=== PATIENT | male | born 1935 | race Hispanic/Latino ===

== ENCOUNTER 2021-02-07 15:06 | Inpatient (IN) | payer OTHER ==
[~2021-02-07] VITALS: Ht 167.6 cm; Wt 72.6 kg
[2021-02-07] MEDS ORDERED: MULTIVITAMINS- 12 INJECTION 10 ML, FOLIC ACID MDV 5 MG, THIAMINE HCL INJ 100 MG in SODI... IV ONE (17:45)
[2021-02-07 17:57] LABS: BASOPHILS % 0.2 % (0.0-1.0); EOSINOPHILS % 0.1 % (0.0-6.0); HEMATOCRIT 46.7 % (38.2-49.6); HEMOGLOBIN 15.2 g/dL (14.0-18.0); LYMPHOCYTES # (AUTO) 0.5 (1.0-3.2); LYMPHOCYTES % 4.3 % (18.0-39.1); MEAN CORPUSCULAR HEMOGLOBIN 28.6 pg (28-32); MEAN CORPUSCULAR HGB CONC 32.5 g/dL (31-35); MEAN CORPUSCULAR VOLUME 87.8 fL (81-99); MONOCYTES % 32.7 % (4.4-11.3); NEUTROPHILS # (AUTO) 7.5 (2.1-6.9); NEUTROPHILS % 61.7 % (38.7-80.0); PLATELET COUNT 98 x10e3/uL (140-360); RED BLOOD COUNT 5.32 x10e6/uL (4.3-5.7); RED CELL DISTRIBUTION WIDTH 19.5 % (11.7-14.4)
[2021-02-07 18:05] LABS: INR 1.1; PROTHROMBIN TIME 14.9 seconds (11.9-14.5)
[2021-02-07 18:06] LABS: PARTIAL THROMBOPLASTIN TIME 40.5 seconds (23.8-35.5)
[2021-02-07 18:15] LABS: ALBUMIN 2.6 g/dL (3.5-5.0); ALBUMIN/GLOBULIN RATIO 0.6 (0.8-2.0); ANION GAP 12.9 mmol/L (8-16); CALCIUM 7.9 mg/dL (8.4-10.2); CREATININE, SERUM 1.5 mg/dL (0.72-1.25)
[2021-02-07 18:17] LABS: POTASSIUM 2.9 mmol/L (3.5-5.1)
[2021-02-07] MEDS ORDERED: POTASSIUM CHLORIDE 20 MEQ TAB CR PO STA (18:17)
[2021-02-07 18:23] LABS: CLARITY,URINE SL CLOUDY (CLEAR); COLOR,URINE BROWN (YELLOW); LEUKOCYTE ESTERASE ,URINE MODERATE (NEGATIVE); NITRITE,URINE NEGATIVE (NEGATIVE); PROTEIN,URINE DIPSTICK 1+ (NEGATIVE)
[2021-02-07 18:24] LABS: KETONES,URINE NEGATIVE (NEGATIVE); URINE UROBILINOGEN >=8 mg/dL (0.2 - 1)
[2021-02-07 18:33] LABS: BACTERIA,URINE MANY /HPF; WBC,URINE (MAN) 21-50 /HPF (0-5)
[2021-02-07] MEDS: CEFTRIAXONE 1 GM in SODIUM CHLORIDE 0.9% 50ML 50 ML IV SCH (19:43)
[2021-02-07] MEDS ORDERED: ONDANSETRON HCL INJ 2MG/ML 2ML 2 MG/ML VIAL IV PRN (19:45)
[2021-02-07] MEDS ORDERED: MORPHINE SULFATE INJ 4 MG/ML INJ 1ML IV PRN (20:30)
[2021-02-07] MEDS: SODIUM CHLORIDE 0.9% 1000ML 1,000 ML IV SCH (23:00)
[2021-02-08] MEDS ORDERED: HALOPERIDOL LACTATE 5 MG/ML VIAL IV PRN (01:00)
[2021-02-08] MEDS ORDERED: LORAZEPAM 0.5 MG TAB PO PRN (01:00)
[2021-02-08] MEDS ORDERED: THIAMINE HCL INJ 100 MG/ML 2ML VIAL IV ONE (01:00)
[2021-02-08 05:45] LABS: BASOPHILS % 0.4 % (0.0-1.0); EOSINOPHILS % 0.4 % (0.0-6.0); HEMATOCRIT 44.8 % (38.2-49.6); HEMOGLOBIN 14.4 g/dL (14.0-18.0); LYMPHOCYTES # (AUTO) 0.6 (1.0-3.2); LYMPHOCYTES % 5.7 % (18.0-39.1); MEAN CORPUSCULAR HEMOGLOBIN 28.5 pg (28-32); MEAN CORPUSCULAR HGB CONC 32.1 g/dL (31-35); MEAN CORPUSCULAR VOLUME 88.5 fL (81-99); MONOCYTES # (AUTO) 3.3 (0.2-0.8); MONOCYTES % 32.1 % (4.4-11.3); NEUTROPHILS # (AUTO) 6.3 (2.1-6.9); NEUTROPHILS % 60.4 % (38.7-80.0); PLATELET COUNT 97 x10e3/uL (140-360); RED BLOOD COUNT 5.06 x10e6/uL (4.3-5.7); RED CELL DISTRIBUTION WIDTH 19.5 % (11.7-14.4)
[2021-02-08 06:04] LABS: ALBUMIN 2.3 g/dL (3.5-5.0); ALBUMIN/GLOBULIN RATIO 0.6 (0.8-2.0); ANION GAP 9.3 mmol/L (8-16); CALCIUM 7.4 mg/dL (8.4-10.2); CREATININE, SERUM 1.25 mg/dL (0.72-1.25); POTASSIUM 3.3 mmol/L (3.5-5.1)
[2021-02-08 06:13] LABS: INR 1.09; PROTHROMBIN TIME 14.8 seconds (11.9-14.5)
[2021-02-08 06:19] LABS: PARTIAL THROMBOPLASTIN TIME 38.9 seconds (23.8-35.5)
[2021-02-08] MEDS: SODIUM CHLORIDE 0.9% 1000ML 1,000 ML IV SCH ×3 (08:42→21:36)
[2021-02-08] MEDS ORDERED: CLOTRIMAZOLE 1% CR 15 GM TOP SCH (09:00)
[2021-02-08 14:28] VITALS: BP 134/66
[2021-02-08 14:30] VITALS: BP 134/66
[2021-02-08 15:18] VITALS: BP 134/66
[2021-02-08] MEDS: TERBINAFINE 30 GM CR TP SCH ×2 (15:50→15:51)
[2021-02-08 16:34] VITALS: BP 147/69
[2021-02-08 20:05] VITALS: BP 147/69
[2021-02-08 20:32] VITALS: BP 129/60
[2021-02-08] MEDS: CEFTRIAXONE 1 GM in SODIUM CHLORIDE 0.9% 50ML 50 ML IV SCH (21:43)
[2021-02-08] MEDS: QUETIAPINE FUMARATE 25 MG TAB PO PRN (21:48)
[2021-02-09] VITALS (7 sets, daily range): BP systolic 121–155; BP diastolic 49–73
[2021-02-09] MEDS: SODIUM CHLORIDE 0.9% 1000ML 1,000 ML IV SCH ×2 (04:58→11:45)
[2021-02-09 05:08] LABS: BASOPHILS % 0.3 % (0.0-1.0); EOSINOPHILS # (AUTO) 0.1 (0.0-0.4); EOSINOPHILS % 0.7 % (0.0-6.0); HEMATOCRIT 40.4 % (38.2-49.6); HEMOGLOBIN 12.9 g/dL (14.0-18.0); LYMPHOCYTES # (AUTO) 0.9 (1.0-3.2); LYMPHOCYTES % 8.9 % (18.0-39.1); MEAN CORPUSCULAR HEMOGLOBIN 28.7 pg (28-32); MEAN CORPUSCULAR HGB CONC 31.9 g/dL (31-35); MEAN CORPUSCULAR VOLUME 89.8 fL (81-99); MONOCYTES # (AUTO) 2.6 (0.2-0.8); MONOCYTES % 27.7 % (4.4-11.3); NEUTROPHILS # (AUTO) 5.8 (2.1-6.9); NEUTROPHILS % 61.2 % (38.7-80.0); PLATELET COUNT 122 x10e3/uL (140-360); RED CELL DISTRIBUTION WIDTH 19.4 % (11.7-14.4)
[2021-02-09 05:28] LABS: ALBUMIN 2.1 g/dL (3.5-5.0); ALBUMIN/GLOBULIN RATIO 0.6 (0.8-2.0); ANION GAP 11.4 mmol/L (8-16); CALCIUM 7.4 mg/dL (8.4-10.2); CREATININE, SERUM 1.13 mg/dL (0.72-1.25); MAGNESIUM 2.1 MG/DL (1.3-2.1); POTASSIUM 3.4 mmol/L (3.5-5.1)
[2021-02-09] MEDS: TERBINAFINE 30 GM CR TP SCH ×2 (11:00→17:25)
[2021-02-09] MEDS ORDERED: POTASSIUM CHLORIDE 20 MEQ TAB CR PO NR (15:45)
[2021-02-09] MEDS: QUETIAPINE FUMARATE 25 MG TAB PO PRN (21:42)
[2021-02-09] MEDS: MEROPENEM 500 MG in SODIUM CHLORIDE 0.9% 50ML 50 ML IV SCH (21:42)
[2021-02-09] MEDS: ACETAMINOPHEN 325 MG TAB PO PRN (21:43)
[2021-02-10] VITALS (8 sets, daily range): BP systolic 134–169; BP diastolic 62–89
[2021-02-10] MEDS: MEROPENEM 500 MG in SODIUM CHLORIDE 0.9% 50ML 50 ML IV SCH ×3 (07:09→22:18)
[2021-02-10] MEDS: TERBINAFINE 30 GM CR TP SCH ×2 (09:40→16:25)
[2021-02-10] MEDS: MULTIVITAMINS/MINERALS TAB PO SCH (11:00)
[2021-02-11] VITALS (9 sets, daily range): BP systolic 151–178; BP diastolic 61–91
[2021-02-11 05:42] LABS: BASOPHILS # (AUTO) 0.1 (0.0-0.1); BASOPHILS % 0.6 % (0.0-1.0); EOSINOPHILS # (AUTO) 0.2 (0.0-0.4); HEMATOCRIT 42.9 % (38.2-49.6); HEMOGLOBIN 14.1 g/dL (14.0-18.0); LYMPHOCYTES # (AUTO) 1.2 (1.0-3.2); LYMPHOCYTES % 14.4 % (18.0-39.1); MEAN CORPUSCULAR HEMOGLOBIN 28.7 pg (28-32); MEAN CORPUSCULAR HGB CONC 32.9 g/dL (31-35); MEAN CORPUSCULAR VOLUME 87.4 fL (81-99); MONOCYTES % 23.8 % (4.4-11.3); NEUTROPHILS # (AUTO) 4.8 (2.1-6.9); NEUTROPHILS % 58.1 % (38.7-80.0); PLATELET COUNT 215 x10e3/uL (140-360); RED BLOOD COUNT 4.91 x10e6/uL (4.3-5.7); RED CELL DISTRIBUTION WIDTH 19.3 % (11.7-14.4)
[2021-02-11] MEDS: MEROPENEM 500 MG in SODIUM CHLORIDE 0.9% 50ML 50 ML IV SCH ×3 (05:56→21:50)
[2021-02-11 06:23] LABS: ALBUMIN 2.3 g/dL (3.5-5.0); ALBUMIN/GLOBULIN RATIO 0.6 (0.8-2.0); ANION GAP 13.3 mmol/L (8-16); CALCIUM 7.6 mg/dL (8.4-10.2); POTASSIUM 3.3 mmol/L (3.5-5.1)
[2021-02-11 08:02] LABS: ANISOCYTOSIS SLIGHT; BAND NEUTROPHILS % (MANUAL) 1 %; EOSINOPHILS % (MANUAL) 1 % (0-7); LYMPHOCYTES % (MANUAL) 10 % (19-48); METAMYELOCYTES % (MANUAL) 3 % (0-0); MONOCYTES % (MANUAL) 27 % (3.4-9.0); MYELOCYTES % (MANUAL) 1 % (0-0); NEUTROPHILS % (MANUAL) 57 % (40-74); PLATELET ESTIMATE ADEQUATE; PLATELET MORPHOLOGY COMMENT NORMAL; RBC MORPHOLOGY COMMENT NORMAL
[2021-02-11] MEDS: TERBINAFINE 30 GM CR TP SCH ×2 (08:18→17:47)
[2021-02-11] MEDS: MULTIVITAMINS/MINERALS TAB PO SCH (08:18)
[2021-02-11] MEDS ORDERED: SODIUM CHLORIDE 0.9% 50ML 50 ML ONE (13:17)
[2021-02-12] VITALS (7 sets, daily range): BP systolic 102–137; BP diastolic 40–67
[2021-02-12] MEDS: MORPHINE SULFATE INJ 4 MG/ML INJ 1ML IV PRN ×2 (02:17→16:05)
[2021-02-12] MEDS: MEROPENEM 500 MG in SODIUM CHLORIDE 0.9% 50ML 50 ML IV SCH ×3 (05:21→20:39)
[2021-02-12] MEDS: MULTIVITAMINS/MINERALS TAB PO SCH (08:52)
[2021-02-12] MEDS: TERBINAFINE 30 GM CR TP SCH ×2 (08:52→16:05)
[2021-02-12] MEDS: ACETAMINOPHEN 325 MG TAB PO PRN (12:00)
[2021-02-13] VITALS (8 sets, daily range): BP systolic 121–142; BP diastolic 57–73
[2021-02-13] MEDS: MEROPENEM 500 MG in SODIUM CHLORIDE 0.9% 50ML 50 ML IV SCH ×3 (06:31→22:19)
[2021-02-13] MEDS: MULTIVITAMINS/MINERALS TAB PO SCH (09:00)
[2021-02-13] MEDS: TERBINAFINE 30 GM CR TP SCH ×2 (09:00→16:04)
[2021-02-13] MEDS: HEPARIN SOD (PORCINE) 5,000 UNIT/ML VIAL SC SCH (22:20)
[2021-02-14] VITALS (7 sets, daily range): BP systolic 138–158; BP diastolic 61–78
[2021-02-14 04:48] LABS: BASOPHILS # (AUTO) 0.1 (0.0-0.1); BASOPHILS % 0.6 % (0.0-1.0); EOSINOPHILS # (AUTO) 0.1 (0.0-0.4); EOSINOPHILS % 1.2 % (0.0-6.0); LYMPHOCYTES # (AUTO) 0.9 (1.0-3.2); LYMPHOCYTES % 9.3 % (18.0-39.1); MEAN CORPUSCULAR HEMOGLOBIN 28.3 pg (28-32); MEAN CORPUSCULAR HGB CONC 32.5 g/dL (31-35); MONOCYTES # (AUTO) 2.5 (0.2-0.8); MONOCYTES % 25.9 % (4.4-11.3); NEUTROPHILS # (AUTO) 5.9 (2.1-6.9); NEUTROPHILS % 61.2 % (38.7-80.0); PLATELET COUNT 402 x10e3/uL (140-360); RED CELL DISTRIBUTION WIDTH 19.9 % (11.7-14.4)
[2021-02-14 05:19] LABS: ANION GAP 8.6 mmol/L (8-16); CREATININE, SERUM 0.93 mg/dL (0.72-1.25); POTASSIUM 3.6 mmol/L (3.5-5.1)
[2021-02-14 05:20] LABS: ALBUMIN/GLOBULIN RATIO 0.5 (0.8-2.0); CALCIUM 7.3 mg/dL (8.4-10.2)
[2021-02-14] MEDS: MEROPENEM 500 MG in SODIUM CHLORIDE 0.9% 50ML 50 ML IV SCH ×3 (06:49→21:15)
[2021-02-14] MEDS: HEPARIN SOD (PORCINE) 5,000 UNIT/ML VIAL SC SCH ×2 (08:58→21:16)
[2021-02-14] MEDS: MULTIVITAMINS/MINERALS TAB PO SCH (08:58)
[2021-02-14] MEDS: TERBINAFINE 30 GM CR TP SCH ×2 (09:00→17:00)
[2021-02-14 10:46] LABS: EOSINOPHILS % (MANUAL) 2 % (0-7); LYMPHOCYTES % (MANUAL) 7 % (19-48); MONOCYTES % (MANUAL) 10 % (3.4-9.0); NEUTROPHILS % (MANUAL) 81 % (40-74)
[2021-02-14 10:47] LABS: ANISOCYTOSIS MODERATE; PLATELET ESTIMATE ADEQUATE; PLATELET MORPHOLOGY COMMENT FEW LARGE; RBC MORPHOLOGY COMMENT ABNORMAL
[2021-02-15] VITALS (8 sets, daily range): BP systolic 120–176; BP diastolic 53–69
[2021-02-15] MEDS: HYDRALAZINE HCL 20 MG/ML VIAL IV PRN (01:51)
[2021-02-15] MEDS: MEROPENEM 500 MG in SODIUM CHLORIDE 0.9% 50ML 50 ML IV SCH ×3 (06:14→21:30)
[2021-02-15] MEDS: HEPARIN SOD (PORCINE) 5,000 UNIT/ML VIAL SC SCH ×2 (09:00→21:31)
[2021-02-15] MEDS: MULTIVITAMINS/MINERALS TAB PO SCH (09:02)
[2021-02-15] MEDS: TERBINAFINE 30 GM CR TP SCH (09:03)
[2021-02-15] MEDS: ACETAMINOPHEN 325 MG TAB PO PRN (14:22)
[2021-02-16] VITALS (8 sets, daily range): BP systolic 126–150; BP diastolic 52–65
[2021-02-16] MEDS: MEROPENEM 500 MG in SODIUM CHLORIDE 0.9% 50ML 50 ML IV SCH ×3 (06:22→22:49)
[2021-02-16] MEDS: MULTIVITAMINS/MINERALS TAB PO SCH (08:42)
[2021-02-16] MEDS: HEPARIN SOD (PORCINE) 5,000 UNIT/ML VIAL SC SCH ×2 (08:43→23:09)
[2021-02-16] MEDS: ACETAMINOPHEN 325 MG TAB PO PRN (14:11)
[2021-02-17] VITALS (8 sets, daily range): BP systolic 127–149; BP diastolic 58–84
[2021-02-17] MEDS: MEROPENEM 500 MG in SODIUM CHLORIDE 0.9% 50ML 50 ML IV SCH (06:00)
[2021-02-17] MEDS: MULTIVITAMINS/MINERALS TAB PO SCH (08:31)
[2021-02-17] MEDS: HEPARIN SOD (PORCINE) 5,000 UNIT/ML VIAL SC SCH ×2 (08:32→21:33)
[2021-02-18] VITALS (8 sets, daily range): BP systolic 136–158; BP diastolic 56–70
[2021-02-18] MEDS: MULTIVITAMINS/MINERALS TAB PO SCH ×2 (08:37→11:29)
[2021-02-18] MEDS: HEPARIN SOD (PORCINE) 5,000 UNIT/ML VIAL SC SCH ×2 (09:00→21:00)
[2021-02-18] MEDS ORDERED: ONDANSETRON HCL 4 MG ORAL DISINTEGRATING TAB PO PRN (16:30)
[2021-02-18] MEDS ORDERED: HYDROCODONE/APAP 5MG-325MG TAB PO PRN (18:30)
[2021-02-19] VITALS (8 sets, daily range): BP systolic 117–152; BP diastolic 70–78
[2021-02-19] MEDS: HEPARIN SOD (PORCINE) 5,000 UNIT/ML VIAL SC SCH ×2 (09:00→21:00)
[2021-02-19] MEDS: MULTIVITAMINS/MINERALS TAB PO SCH (11:28)
[2021-02-20] VITALS (8 sets, daily range): BP systolic 117–166; BP diastolic 60–92
[2021-02-20] MEDS: HEPARIN SOD (PORCINE) 5,000 UNIT/ML VIAL SC SCH ×2 (08:58→20:39)
[2021-02-20] MEDS: MULTIVITAMINS/MINERALS TAB PO SCH (08:58)
[2021-02-20] MEDS: HYDRALAZINE HCL 20 MG/ML VIAL IV PRN (20:39)
[2021-02-21] VITALS (8 sets, daily range): BP systolic 113–140; BP diastolic 62–82
[2021-02-21] MEDS: MULTIVITAMINS/MINERALS TAB PO SCH (08:56)
[2021-02-21] MEDS: HEPARIN SOD (PORCINE) 5,000 UNIT/ML VIAL SC SCH ×2 (09:51→22:00)
[2021-02-22] VITALS (9 sets, daily range): BP systolic 124–148; BP diastolic 56–88
[2021-02-22] MEDS: MULTIVITAMINS/MINERALS TAB PO SCH (08:22)
[2021-02-22] MEDS: HEPARIN SOD (PORCINE) 5,000 UNIT/ML VIAL SC SCH ×2 (09:00→20:15)
[2021-02-23] VITALS (8 sets, daily range): BP systolic 112–130; BP diastolic 52–62
[2021-02-23] MEDS: MULTIVITAMINS/MINERALS TAB PO SCH (09:22)
[2021-02-23] MEDS: HEPARIN SOD (PORCINE) 5,000 UNIT/ML VIAL SC SCH ×2 (09:22→23:26)
[2021-02-24] VITALS (7 sets, daily range): BP systolic 90–142; BP diastolic 54–75
[2021-02-24] MEDS: MULTIVITAMINS/MINERALS TAB PO SCH (09:33)
[2021-02-24] MEDS: HEPARIN SOD (PORCINE) 5,000 UNIT/ML VIAL SC SCH ×2 (09:34→21:00)
[2021-02-25] VITALS (8 sets, daily range): BP systolic 105–139; BP diastolic 58–75
[2021-02-25] MEDS: MULTIVITAMINS/MINERALS TAB PO SCH (08:39)
[2021-02-25] MEDS: HEPARIN SOD (PORCINE) 5,000 UNIT/ML VIAL SC SCH ×2 (09:00→20:31)
[2021-02-26] VITALS: BP 150/68
[2021-02-26 04:00] VITALS: BP 111/80
[2021-02-26 08:59] VITALS: BP 128/64
[2021-02-26 09:08] VITALS: BP 128/64
[2021-02-26] MEDS: HEPARIN SOD (PORCINE) 5,000 UNIT/ML VIAL SC SCH (09:15)
[2021-02-26] MEDS: MULTIVITAMINS/MINERALS TAB PO SCH (09:15)
[2021-02-26 12:52] VITALS: BP 126/60
[2021-02-26 16:55] VITALS: BP 140/64
== END 2021-02-26 18:05 | DRG 535 ==
LOC: ER 17:47 → ERHOLD 19:51 → MED/SURG2 02-08 13:54
PROVIDERS: ADMIT Internal Medicine; ATTEND Internal Medicine
DX: S72.111A Displaced fracture of greater trochanter of right femur, initial encounter for closed fracture (principal); G93.41 Metabolic encephalopathy; M97.01XA Periprosthetic fracture around internal prosthetic right hip joint, initial encounter; N17.9 Acute kidney failure, unspecified; N39.0 Urinary tract infection, site not specified; J98.11 Atelectasis; Z16.12 Extended spectrum beta lactamase (ESBL) resistance; W01.0XXA Fall on same level from slipping, tripping and stumbling without subsequent striking against object, initial encounter; Y93.89 Activity, other specified; Y92.019 Unspecified place in single-family (private) house as the place of occurrence of the external cause; Z87.440 Personal history of urinary (tract) infections; E87.6 Hypokalemia; Y90.0 Blood alcohol level of less than 20 mg/100 ml; B35.4 Tinea corporis; Z87.891 Personal history of nicotine dependence; D69.6 Thrombocytopenia, unspecified; E83.51 Hypocalcemia; E88.09 Other disorders of plasma-protein metabolism, not elsewhere classified; N18.9 Chronic kidney disease, unspecified; K70.9 Alcoholic liver disease, unspecified; F10.20 Alcohol dependence, uncomplicated; B96.20 Unspecified Escherichia coli [E. coli] as the cause of diseases classified elsewhere; F03.90 Unspecified dementia, unspecified severity, without behavioral disturbance, psychotic disturbance, mood disturbance, and anxiety; K75.9 Inflammatory liver disease, unspecified; W19.XXXA Unspecified fall, initial encounter; Y92.230 Patient room in hospital as the place of occurrence of the external cause
CPT/HCPCS: 36415; 51700; 71045; 73521; 73523; 80053; 80320; 81001; 82948; 83605; 83735; 85025; 85610; 85730; 87040; 87086; 87186; 93005; 96372; 96376; 97139; 99251; 99284; J0360; J0696; J1644; J2185; J2270; J2405; J3411; J7030